=== PATIENT | female | born 1970 | race Asian ===

== ENCOUNTER 2022-01-08 18:01 | Emergency (ER) | payer OTHER ==
[~2022-01-08] VITALS: Ht 157.5 cm; Wt 60.9 kg
[2022-01-08] MEDS ORDERED: IBUPROFEN 600 MG TAB PO STA (18:37)
[2022-01-08] MEDS ORDERED: ONDANSETRON HCL 4 MG ORAL DISINTEGRATING TAB PO ONE (18:45)
[2022-01-08] MEDS ORDERED: IBUPROFEN600 MG PO (19:22)
[2022-01-08] MEDS ORDERED: ONDANSETRON ODT4 MG PO (19:22)
[2022-01-08] MEDS ORDERED: ONDANSETRON HCL 4 MG ORAL DISINTEGRATING TAB ONE (19:24)
[2022-01-08] MEDS ORDERED: IBUPROFEN 600 MG TAB ONE (19:24)
== END 2022-01-08 19:30 | disposition home or self-care (01) ==
LOC: FSED 18:06
DX: R51.9 Headache, unspecified (principal); V44.5XXA Car driver injured in collision with heavy transport vehicle or bus in traffic accident, initial encounter; Y92.488 Other paved roadways as the place of occurrence of the external cause; Z87.442 Personal history of urinary calculi
CPT/HCPCS: 70450; 99283; Q0162